=== PATIENT | female | born 1970 | race Hispanic/Latino ===

== ENCOUNTER 2018-08-27 18:54 | Emergency (ER) | payer OTHER ==
[2018-08-27] MEDS ORDERED: ONDANSETRON HCL 4 MG/2 ML VIAL ONE (19:55)
[2018-08-27] MEDS ORDERED: SODIUM CHLORIDE 0.9% 1000ML 2,000 ML IV ONE (19:55)
[2018-08-27] MEDS ORDERED: KETOROLAC TROMETHAMINE 30MG/ML ONE (19:55)
[2018-08-27] MEDS ORDERED: PROCHLORPERAZINE EDISYLATE 10 MG/2 ML VIAL ONE (19:56)
[2018-08-27] MEDS ORDERED: FAMOTIDINE/PF 20 MG/2 ML VIAL IV ONE (19:56)
[2018-08-27 20:07] LABS: BASOPHILS % (AUTO) 0.5 % (0.0-5.0); EOSINOPHILS % (AUTO) 1.2 % (0.0-8.0); HEMATOCRIT 39.5 % (36-48); LYMPHOCYTES % (AUTO) 18.4 % (21.0-51.0); MEAN CORPUSCULAR HEMOGLOBIN 27.5 pg (27.0-33.0); MEAN CORPUSCULAR HGB CONC 32.9 g/dL (32.0-36.0); MEAN CORPUSCULAR VOLUME 83.7 fL (79-99); MONOCYTES % (AUTO) 6.2 % (3.0-13.0); NEUTROPHILS % (AUTO) 73.7 % (40.0-77.0); PLATELET COUNT (AUTO) 298 K/uL (130-400); RED BLOOD CELL COUNT(AUTO) 4.72 MIL/uL (4.00-5.50); RED CELL DISTRIBUTION WIDTH 15.1 % (11.0-15.5); WHITE BLOOD COUNT (AUTO) 14.8 K/uL (4.8-10.8)
[2018-08-27 20:18] LABS: CREATININE 1.2 mg/dL (0.5-1.5)
[2018-08-27 20:23] LABS: ALBUMIN 3.4 g/dL (3.5-5.0); BILIRUBIN,TOTAL 0.1 mg/dL (0.2-1.0); TOTAL PROTEIN, SERUM 7.9 g/dL (6.0-8.3)
== END 2018-08-27 22:14 | disposition home or self-care (01) ==
LOC: EDH 18:54
DX: E86.9 Volume depletion, unspecified (principal); R11.2 Nausea with vomiting, unspecified; R19.7 Diarrhea, unspecified; R10.32 Left lower quadrant pain
CPT/HCPCS: 36415; 80053; 83690; 85025; 96361; 96374; 96375; 99283; J0780; J1885; J2405; J3490; J7030

== ENCOUNTER 2023-03-30 10:35 | Emergency (ER) | payer OTHER ==
[~2023-03-30] VITALS: Ht 157.5 cm; Wt 81.6 kg
[2023-03-30 10:41] VITALS: BP 147/82; PULSE 95; RESP 20
[2023-03-30] MEDS ORDERED: IBUP-2070 PO (10:53)
[2023-03-30] MEDS ORDERED: CYCL10TA16 PO (10:53)
[2023-03-30] MEDS ORDERED: CYCLOBENZAPRINE HCL 10 MG TABLET PO ONE (11:00)
[2023-03-30] MEDS ORDERED: KETOROLAC 30MG VIAL (30MG/ML) IM ONE (11:00)
== END 2023-03-30 12:36 | disposition home or self-care (01) ==
LOC: EDH 10:35
DX: G58.8 Other specified mononeuropathies (principal); S66.812A Strain of other specified muscles, fascia and tendons at wrist and hand level, left hand, initial encounter; E11.9 Type 2 diabetes mellitus without complications; Z79.899 Other long term (current) drug therapy; Z98.890 Other specified postprocedural states; X58.XXXA Exposure to other specified factors, initial encounter; Y93.89 Activity, other specified; Y92.89 Other specified places as the place of occurrence of the external cause; Y99.8 Other external cause status
CPT/HCPCS: 99283; 96372; J1885

== ENCOUNTER 2025-01-04 22:01 | Emergency (ER) | payer SELFPAY ==
[~2025-01-04] VITALS: Ht 154.9 cm; Wt 78.0 kg
[~2025-01-04 22:01] MED LIST: CYCL10TA16 PO; IBUP-2070 PO
--- NOTE | 2025-01-04 22:05 | NUR ---
PT CARE ASSUMED AT THIS TIME
[2025-01-04] MEDS ORDERED: MUPI22OI2 TP (22:40)
[2025-01-04] MEDS ORDERED: DOXY100T21 PO (22:40)
--- NOTE | 2025-01-04 22:47 | ERN ---
ED Note History of Present Illness Stated Complaint: INFECTED FINGER Chief Complaint: Wound Check Time Seen by MD: 22:07 Time Seen by Midlevel: 22:10 Dictation: Ms. Matos is a 54 year old female hypertension, type II DM, and obesity who presented to the Emergency Department this evening for evaluation of finger pain. She reports erythema, warmth, and tenderness around the right 3rd finger. She now has increased pain and it "feels tight". There is pus formation. She denies fever, chills, shortness of breath, cough, chest pain, palpitations, edema, abdominal pain, nausea, vomiting, hematemesis, constipation, diarrhea, melena, hematochezia, dysuria, headache, dizziness, or focal weakness/paresthesia. She states that her blood glucose levels have not been elevated. Allergies: Coded Allergies: No Known Allergies (Unverified Allergy, Unknown, 03/30/23) Home Meds Active Scripts Cyclobenzaprine HCl (Flexeril) 10 Mg Tab, 10 MG PO TID, #30 TAB Prov:IVAN CLOUD 03/30/23 Ibuprofen (Ibuprofen) 600 Mg Tablet, 600 MG PO Q6H PRN for PAIN, #30 TAB Prov:IVAN CLOUDP 03/30/23 Past Medical History Past Medical History: Diabetes-Type II, Hypertension Surgical History: Social History: Negative, Lives with family History: Not Applicable RN Note Reviewed/Agreed w/PFSH: Yes Review of System Dictation REVIEW OF SYSTEMS: CONSTITUTIONAL: Patient denies fevers, chills, sweats and weight changes. EYES: Patient denies any visual symptoms. EARS, NOSE, AND THROAT: No difficulties with hearing. No symptoms of rhinitis or sore throat. CARDIOVASCULAR: Patient denies chest pains, palpitations, orthopnea and paroxysmal nocturnal dyspnea. RESPIRATORY: No dyspnea on exertion, no wheezing or cough. GI: No nausea, vomiting, diarrhea, constipation, abdominal pain, hematochezia or melena. : No urinary hesitancy or dribbling. No nocturia or urinary frequency. No abnormal urethral discharge. MUSCULOSKELETAL: Reports pain right 3rd finger. NEUROLOGIC: No chronic headaches, no seizures. Patient denies numbness, tingling or weakness. PSYCHIATRIC: Patient denies problems with mood disturbance. No problems with anxiety. ENDOCRINE: No excessive urination or excessive thirst. DERMATOLOGIC: reports erythema, warmth, and tenderness around the right 3rd finger. She now has increased pain and it "feels tight". There is pus formation. Initial Vital Sign VS Vital Signs Date Time Temp Pulse Resp B/P (MAP) Pulse Ox O2 Delivery O2 Flow Rate FiO2 01/04/25 22:02 96.6 88 16 147/87 97 Room Air Physical Exam Dictation Vital signs: Reviewed. Afebrile Constitutional: No acute distress. Non-toxic appearing. Head/Face: Normocephalic, atraumatic. Eyes: Periorbital areas with no swelling, redness, or edema. Lids and lashes are normal. Conjunctival injection is absent. Sclera anicteric. Pupils equal, round, reactive to light. ENT: Pinnas intact and no signs of trauma or erythema. Ear canals clear and no discharge. TMs no erythema. No nasal discharge or bleeding noted. Oropharynx with no exudate, redness, swelling, masses, exudates, or evidence of obstruction. Uvula midline. Mucous membranes moist. Neck: Trachea midline, no masses palpated, and no cervical lymphadenopathy. No swelling. Supple, full range of motion. Chest/Axilla: No tenderness, no crepitus, no paradoxical movement, no retractions. Cardiovascular: Regular rate, regular rhythm, no murmur, no gallops. Symmetric pulses. No peripheral edema. Respiratory: Respirations even and unlabored. Lung sounds clear; no wheezes, rales or rhonchi. Room air SpO2 92% Gastrointestinal: Inspection is normal. No distention is appreciated. Bowel sounds are normal. No mass or organomegaly . There is no tenderness. No rebound. No rigidity. No voluntary or involuntary guarding. No Ruiz's sign. Neurological: Normal speech, gross motor function intact, gross sensory function intact. No focal weakness/Paresthesia. Musculoskeletal/Extremities: All extremities have full range of motion, no pain or tenderness on palpation. Symmetric pulses. Integumentary: Intact. There is erythema, warmth, and tenderness around the right 3rd finger. fluctuant with pus collection. Skin is normal color, warm and dry. Cap refill less than 2 seconds. ED Course ED Course Vital Signs Date Time Temp Pulse Resp B/P (MAP) Pulse Ox O2 Delivery O2 Flow Rate FiO2 01/04/25 22:02 96.6 88 16 147/87 97 Room Air Uneventful ED course. Patient with right 3rd finger paronychia. I and D was performed; tolerated well. She states that she had immediate relief of pain/and pressure. She received a initial dose doxycycline. Follow up care and assessment discussed with patient and significant other. All questions were answered. Medical Decision Making MDM MDM: Differential diagnosis: paronychia, cellulitis Rationale: Tests considered and ordered secondary to shared decision making include: examination Previous outside records reviewed: Old ER visits. Risk of complication and/or morbidity or mortality of patient management: None Medications-Per medication reconciliation Need for hospitalization: Patient does not meet criteria for hospitalization. Need for emergency major/minor surgery: No There are no social concerns with this patient. Prescription drug management: Mupirocin, doxycycline Prescriptions will include symptomatic care Patient's prior external medical records from other ER visits were reviewed by me as indicated. Prior testing and results from previous visits were reviewed. Prior tests were taken into account with medical decision making and resource utilization, independent historian/historians were used to obtain complete medical history. I independently interpreted the test that were performed, results were reviewed by me and considered findings on radiology if ordered. Medical management and examination interpretation discussions were had by me with other qualified healthcare professionals as indicated for the patient's care. Procedure Blade Size: 11 Progress I&D right 3rd finger paronychia. Infiltrated with 1% lidocaine following cleanse with Betadine. Large amount of pus expelled and patient stated there was immediate relief of pain/pressure,. DX & DISP Disposition: Discharge Departure Impression: Primary Impression: Paronychia Condition: Stable Scripts Doxycycline Monohydrate (Doxycycline Monohydrate) 100 Mg Tablet 1 TAB PO BID for 10 Days, #20 TAB 0 Refills Prov: ANT HUNT NP 01/04/25 Mupirocin (Mupirocin Ointment) 2 % Oint 1 APPL TP TID for 7 Days, #22 GM 0 Refills apply to affected area(s) Prov: ANT HUNT LITIGATION COUNSEL 01/04/25 Additional Instructions: Continue warm soaks 3-4 times daily. Apply mupirocin twice daily. Start doxycycline 100 mg twice daily. Avoid trauma: No nail trimming, biting, or chemical exposure. Monitor your blood glucose readings. Follow up at the emergency department or with your PCP if there is spreading redness, fever, chills, increased pain, or delayed healing Referrals: NONE (PCP) Time of Disposition: 22:42 ANT HUNT NP Jan 04, 2025 22:47
[2025-01-04] MEDS: DOXYCYCLINE HYCLATE 100 MG TABLET PO ONE (23:10)
--- NOTE | 2025-01-04 23:10 | NUR ---
WOUND CARE DONE AND DRESSING PLACED
[2025-01-04 23:57] VITALS: BP 119/85; PULSE 72; RESP 17; TEMP 98.4; O2SAT 98
== END 2025-01-05 | disposition home or self-care (01) ==
LOC: EDH 22:01
DX: L03.011 Cellulitis of right finger (principal); E11.9 Type 2 diabetes mellitus without complications; I10 Essential (primary) hypertension; Z79.899 Other long term (current) drug therapy
CPT/HCPCS: 10060; 99283

== ENCOUNTER 2025-02-03 13:46 | Emergency (ER) | payer OTHER ==
[~2025-02-03] VITALS: Ht 154.9 cm; Wt 77.1 kg
[~2025-02-03 13:46] MED LIST changes: +DOXY100T21 PO; +MUPI22OI2 TP
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
[2025-02-03 14:21] LABS: IMMATURE GRANULOCYTE ABSOLUTE 0.01 K/uL (0-1); NUCLEATED RED BLOOD CELLS 0.0 % (0.0-0.19); PLATELET COUNT (AUTO) 237 K/uL (130-400); RED BLOOD CELL COUNT(AUTO) 4.89 MIL/uL (4.00-5.50); RED CELL DISTRIBUTION WIDTH 13.6 % (11.0-15.5); WHITE BLOOD COUNT (AUTO) 6.8 K/uL (4.8-10.8)
[2025-02-03 14:34] LABS: ASPARTATE AMINOTRANSFERASE 19.0 U/L (10-37); CREATININE 0.9 mg/dL (0.5-1.0); GLOMERULAR FILTR. RATE CALC 76.0 mL/min (>90); SODIUM SERUM 135.0 mmol/L (136-145); TOTAL PROTEIN, SERUM 7.5 g/dL (6.0-8.3); UREA NITROGEN, BLOOD 18.0 mg/dL (7-18)
--- NOTE | 2025-02-03 14:40 | EKG ---
[facility] Test Date: 2025-02-03 Test Time: 14:16:03 Pat Name: WADE ECHEVERRIA Department: [facility] Room: Gender: F Lead Instructor/Flight Attendant: [id number] : 1970 Requested By: FADI GARCIA Order Number: [id number] Reading MD: Leanna Carlson Measurements Intervals [place]vert Rate: 86 P: 35 DC: 146 QRS: 22 QRSD: 84 T: 26 QT: 388 QTc: 465 Interpretive Statements Sinus rhythm No previous ECG available for comparison Electronically Signed On 02-04-2025 15:29:50 CDT by Leanna Carlson Please click the below link to view image of tracing.
[2025-02-03 14:44] LABS: GLUCOSE,RANDOM 422.0 mg/dL (70-105)
[2025-02-03] MEDS: 0.9%NACL 1000ML 1,000 ML IV ONE (15:03)
--- NOTE | 2025-02-03 15:42 | HMCIMG ---
EXAM: CT Abdomen and Pelvis Without IV contrast CLINICAL HISTORY: RUQ PAIN TECHNIQUE: Axial computed tomography images of the abdomen and pelvis without intravenous contrast. CONTRAST: No IV contrast. COMPARISON: None provided. FINDINGS: LUNG BASES: The lung bases appear clear. No pleural effusions are seen. LIVER: The liver is moderately enlarged, measuring 20.8 cm. Diffuse decrease in hepatic attenuation. GALLBLADDER AND BILE DUCTS: The gallbladder appears within normal limits. No radioopaque gallstones are seen. No biliary ductal dilatation is evident. PANCREAS: Unremarkable. SPLEEN: Unremarkable. ADRENAL GLANDS: Unremarkable. KIDNEYS, URETERS, AND BLADDER: Tiny renal concretion in the upper calyx of the right kidney. The kidneys appear within normal limits. There is no hydronephrosis or hydroureter. STOMACH AND BOWEL: Colonic diverticulosis without diverticulitis. Unremarkable appearance of the stomach and small bowel. No evidence of bowel obstruction. No evidence suggesting enteritis or colitis. APPENDIX: No evidence of acute appendicitis on CT examination. PERITONEUM: No free fluid. No free air. LYMPH NODES: No lymphadenopathy is evident. REPRODUCTIVE: Grossly enlarged uterus measuring 10.0 x 9.3 x 12.5 cm. Endometrial thickness measures 2.0 cm. VASCULATURE: No evidence of abdominal aortic aneurysm. BONES: Degenerative changes in the visualised spine in the form of posterior osteophytes and degenerative discs at multiple lumbar levels. No aggressively appearing osseous lesion. No acute osseous pathology is evident. IMPRESSION: 1. No acute intraabdominal or pelvic pathology. 2. Hepatomegaly with liver span of 20.8 cm with hepatic steatosis. 3. Enlarged uterus measuring 10.0 x 9.3 x 12.5 cm with thickened endometrium (2.0 cm). Suggested US Pelvis or MRI Pelvis for further evaluation. /[place]
[2025-02-03] MEDS ORDERED: DICL20GE TP (16:12)
[2025-02-03 16:21] VITALS: BP 142/80; PULSE 90; RESP 16; TEMP 98.3; O2SAT 98
== END 2025-02-03 16:29 | disposition home or self-care (01) ==
LOC: EDH 13:46
DX: S39.011A Strain of muscle, fascia and tendon of abdomen, initial encounter (principal); R16.0 Hepatomegaly, not elsewhere classified; E11.65 Type 2 diabetes mellitus with hyperglycemia; I10 Essential (primary) hypertension; V89.2XXA Person injured in unspecified motor-vehicle accident, traffic, initial encounter; Y93.89 Activity, other specified; Y92.89 Other specified places as the place of occurrence of the external cause; Y99.8 Other external cause status
CPT/HCPCS: 99285; 74176; 96374; 96361; 84484; 80053; 85025; 82948; 36415; 93005; J1815; J7030